=== PATIENT | female | born 1980 | race Caucasian/White ===

== ENCOUNTER 2019-01-03 01:52 | Emergency (ER) | payer SELFPAY ==
[~2019-01-03] VITALS: Ht 175.3 cm; Wt 74.0 kg
[2019-01-03 01:55] VITALS: BP 110/71
--- NOTE | 2019-01-03 02:39 | NUR ---
PT AMBULATED TO SHOWER STEADILY. PT ABLE TO WASH HERSELF. PT A&oX4. PT BACK IN ROOM, IN GOWN. PT GIVEN SOCKS AND WARM BLANKETS.
[2019-01-03 03:02] LABS: MICROSCOPIC AUTO
[2019-01-03 03:03] LABS: BASOPHILS # (AUTO) 0.03 x10^3/uL (0-0.1); BASOPHILS % (AUTO) 0 % (0-1); EOSINOPHILS # (AUTO) 0.14 x10^3/uL (0-0.4); EOSINOPHILS % (AUTO) 1 % (1-7); LYMPHOCYTES # (AUTO) 2.83 x10^3/uL (1-3.4); LYMPHOCYTES % (AUTO) 23 % (22-44); MD NO; MEAN CORPUSCULAR HEMOGLOBIN 27.3 pg (27.0-34.8); MEAN CORPUSCULAR HGB CONC 31.1 g/dL (32.4-35.8); MEAN CORPUSCULAR VOLUME 87.8 fL (80-100); MEAN PLATELET VOLUME 7.4 fL (7.4-10.4); MONOCYTES # (AUTO) 0.82 x10^3/uL (0.2-0.8); MONOCYTES % (AUTO) 7 % (2-9); NEUTROPHILS # (AUTO) 8.32 x10^3/uL (1.8-6.8); NEUTROPHILS % (AUTO) 69 % (42-75); PLATELET COUNT 460 x10^3/uL (130-400); RED BLOOD COUNT 3.83 x10^6/uL (3.82-5.3); RED CELL DISTRIBUTION WIDTH 19.6 % (9.6-15.2)
[2019-01-03 03:09] LABS: CULTURE INDICATED? YES
[2019-01-03 03:10] LABS: AMPHETAMINE SCREEN, URINE Negative (Negative); BARBITURATE SCREEN, URINE Negative (Negative); BENZODIAZEPINE SCREEN, URINE Negative (Negative); CANNABINOID SCREEN, URINE Positive (Negative); COCAINE SCREEN, URINE Negative (Negative); METHADONE SCREEN, URINE Negative (Negative); OPIATE SCREEN, URINE Negative (Negative)
[2019-01-03 03:16] LABS: ALANINE AMINOTRANSFERASE 66 U/L (12-78); ALBUMIN 2.8 g/dL (3.4-5.0); ANION GAP 11 mmol/L (5-15); CALCIUM 7.7 mg/dL (8.5-10.1); CHLORIDE 110 mmol/L (98-107); CREATININE 0.41 mg/dL (0.55-1.02); SALICYLATE LEVEL 2.1 mg/dL (2.8-20.0)
[2019-01-03 03:21] LABS: ALKALINE PHOSPHATASE 204 U/L (45-117); BILIRUBIN,TOTAL 0.3 mg/dL (0.2-1.0); TOTAL PROTEIN 6.4 g/dL (6.4-8.2)
[2019-01-03] MEDS ORDERED: THIAMINE 100MG TABLET ONE (03:26)
[2019-01-03] MEDS ORDERED: THIAMINE 100MG TABLET PO ONE (03:30)
[2019-01-03] MEDS ORDERED: LORazepam 1MG TABLET PO ONE (03:30)
[2019-01-03] MEDS ORDERED: LORazepam 1MG TABLET ONE (03:43)
--- NOTE | 2019-01-03 03:50 | NUR ---
PT REQUESTING TO LEAVE AMA. PT SIGNED AMA PAPERWORK. DC PAPERWORK NOW AVAILABLE. DC PAPERWORK GIVEN TO PT. PT GIVEN CLEAN GOWN AND BLANKET. SPOUSE IS SAFE RIDE TO [facility] WHERE PT HAS BED WAITING. ERP CONFIRMED WITH [facility] BED IS STILL AVAILABLE
== END 2019-01-03 03:54 | disposition home or self-care (01) ==
LOC: ED 03:45
DX: F10.229 Alcohol dependence with intoxication, unspecified (principal); F41.9 Anxiety disorder, unspecified; F17.200 Nicotine dependence, unspecified, uncomplicated
CPT/HCPCS: 36415; 80053; 80178; 80307; 81001; 84703; 85025; 87077; 87086; 87186; 99283